=== PATIENT | female | born 1955 | race Two or more races ===

== ENCOUNTER 2019-09-05 17:53 | Emergency (ER) | payer BC, OTHER ==
--- NOTE | 2019-09-05 18:41 | ED ---
Upper Extremity Pain - HPI Summary HPI Summary: Patient complains of mechanical fall on ice today at 4:30 PM with subsequent pain from left shoulder to left elbow rated 8/10. Denies any other symptoms, injuries, or pain. No anti-coag. - History of Current Complaint Chief Complaint: EDExtremityUpper Stated Complaint: LT ARM AND SHOULDER INJURY PER PT Time Seen by Provider: 09/05/19 18:39 Hx Obtained From: Patient Hx Last Menstrual Period: 2 WEEKS AGO Mechanism Of Injury: Fall From A Standing Position Onset/Duration: Started Hours Ago Timing: Constant Severity Initially: Moderate Severity Currently: Moderate Pain Location: Shoulder, Elbow Character: Dull, Aching, Throbbing Aggravating Factor(s): Movement Alleviating Factor(s): Nothing Associated Signs & Symptoms: Positive: Negative - Allergies/Home Medications Allergies/Adverse Reactions: Allergies Allergy/AdvReac Type Severity Reaction Status Date / Time No Known Allergies Allergy Verified 09/05/19 18:00 PMH/Surg Hx/FS Hx/Imm Hx Endocrine/Hematology History: Denies: Hx Anticoagulant Therapy Cardiovascular History: Denies: Hx Pacemaker/ICD History: Denies: Hx Dialysis Sensory History: Denies: Hx Eye Prosthesis Opthamlomology History: Denies: Hx Legally Blind EENT History: Denies: Hx Deafness Neurological History: Denies: Hx Dementia - Surgical History Surgery Procedure, Year, and Place: CHOLECYSTECTOMY Infectious Disease History: No Infectious Disease History: Denies: Traveled Outside the [place] in Last 30 Days - Family History Known Family History: Positive: Non-Contributory - Social History Alcohol Use: Occasionally Substance Use Type: Reports: None Smoking Status (MU): Never Smoked Tobacco Review of Systems Constitutional: Negative Eyes: Negative ENT: Negative Cardiovascular: Negative Respiratory: Negative Gastrointestinal: Negative Genitourinary: Negative Musculoskeletal: Other Skin: Negative Neurological: Negative Psychological: Normal All Other Systems Reviewed And Are Negative: Yes Physical Exam - Summary Physical Exam Summary: Pain with palpation of left shoulder and left humerus. Patient refuses to move left arm. PMS intact distally. No erythema, ecchymosis, swelling, deformity noted. Triage Information Reviewed: Yes Vital Signs On Initial Exam: Initial Vitals Temp Pulse Resp BP Pulse Ox 96.5 F 66 18 138/72 99 09/05/19 17:56 09/05/19 17:56 09/05/19 17:56 09/05/19 17:56 09/05/19 17:56 Vital Signs Reviewed: Yes Appearance: Positive: Well-Appearing Skin: Positive: Warm Head/Face: Positive: Normal Head/Face Inspection Eyes: Positive: Normal Neck: Positive: Supple Respiratory/Lung Sounds: Positive: Clear to Auscultation Cardiovascular: Positive: Normal Abdomen Description: Positive: Nontender Musculoskeletal: Positive: Normal Neurological: Positive: Normal Psychiatric: Positive: Normal AVPU Assessment: Alert - Katrin Coma Scale Best Eye Response: 4 - Spontaneous Best Motor Response: 6 - Obeys Commands Best Verbal Response: 5 - Oriented Coma Scale Total: 15 Procedures - Sedation Patient Received Moderate/Deep Sedation with Procedure: No Diagnostics - Vital Signs Vital Signs Temp Pulse Resp BP Pulse Ox 09/05/19 17:56 96.5 F 66 18 138/72 99 - Laboratory Lab Statement: Any lab studies that have been ordered have been reviewed, and results considered in the medical decision making process. Course/Dx - Course Course Of Treatment: Patient complains of mechanical fall on ice today at 4:30 PM with subsequent pain from left shoulder to left elbow rated 8/10. Denies any other symptoms, injuries, or pain. No anti-coag. Vital signs within normal limits. X-ray left shoulder positive for a proximal humerus fracture. Patient placed in sling. Follow-up with orthopedics. - Diagnoses Provider Diagnoses: Fall, Proximal humerus fracture Discharge ED - Sign-Out/Discharge Documenting (check all that apply): Patient Departure - Discharge Plan Condition: Stable Disposition: HOME Prescriptions: Oxycodone HCl 5 mg PO TID 4 Days #12 tablet MDD 3 tabs Patient Education Materials: Proximal Humerus Fracture (ED) Referrals: Jose Kimball MD [Primary Care Provider] - Mejia Haddad MD [Medical Doctor] - Additional Instructions: Call the clinic of orthopedics Dr. Haddad tomorrow morning to set up appointment for further evaluation. Wear sling until evaluated by orthopedics. Alternate ibuprofen 600 mg with Tylenol 650 mg every 3 hours as needed for pain. Take oxycodone as directed for pain if necessary. Return to the ED for any new or worsening symptoms. - Billing Disposition and Condition Condition: STABLE Disposition: Home
[2019-09-05] MEDS ORDERED: Ketorolac INJ* 30 MG/ML 1 ML VIAL IM ONE (19:15)
[2019-09-05 21:02] VITALS: BP 142/80
== END 2019-09-05 21:01 | disposition home or self-care (01) ==
LOC: ED 17:53
DX: S42.202A Unspecified fracture of upper end of left humerus, initial encounter for closed fracture (principal); W00.0XXA Fall on same level due to ice and snow, initial encounter; Y92.9 Unspecified place or not applicable; Z90.49 Acquired absence of other specified parts of digestive tract
CPT/HCPCS: 96372; 99282; J1885